=== PATIENT | male | born 1970 | race Caucasian/White ===

== ENCOUNTER 2016-07-01 05:54 | Day surgery (SDC) | payer BC ==
[2016-07-01] MEDS ORDERED: LIDOCAINE HCL/PF 1% 30 ML SDV ONE (06:23)
[2016-07-01] MEDS ORDERED: EPINEPHRINE (1:1000) MDV 30 MG/30ML VIAL ONE (06:23)
[2016-07-01] MEDS ORDERED: MIDAZOLAM HCL 2 MG/2ML VIAL ONE (07:08)
[2016-07-01] MEDS ORDERED: FENTANYL PF 100MCG/2ML AMPUL ONE (07:08)
[2016-07-01] MEDS ORDERED: ESMOLOL INJ 100 MG/10 ML VIAL IV ONE (07:09)
[2016-07-01] MEDS ORDERED: ROCURONIUM BROMIDE 50 MG/5 ML ONE (07:09)
[2016-07-01] MEDS ORDERED: IV LR 1000 ML 1,000 ML ONE (07:42)
[2016-07-01] MEDS ORDERED: CEFAZOLIN SODIUM/DEXTROSE,ISO 50 ML IV ONE (07:43)
[2016-07-01] MEDS ORDERED: IV SET PRIMARY 1 EA INFUS.SET MC ONE (07:43)
[2016-07-01] MEDS ORDERED: SECONDARY IV SET 1 EA INFUS.SET MC ONE (07:43)
[2016-07-01] MEDS ORDERED: NEEDLELESS EST SET LARGE BORE 1 EA INFUS.SET MC ONE (07:43)
[2016-07-01] MEDS ORDERED: methylPREDNISolone ACETATE 80 MG/ML VIAL ONE (08:15)
[2016-07-01] MEDS ORDERED: SEVOFLURANE 250 ML BOTTLE IH ONE (09:37)
== END 2016-07-01 10:20 ==
LOC: DS 05:54
PROVIDERS: ATTEND Specialist
DX: M75.41 Impingement syndrome of right shoulder (principal); M75.101 Unspecified rotator cuff tear or rupture of right shoulder, not specified as traumatic; M75.21 Bicipital tendinitis, right shoulder; M19.011 Primary osteoarthritis, right shoulder; M65.811 Other synovitis and tenosynovitis, right shoulder
CPT/HCPCS: 23430; 29823; 29824; 29826; 88304; 88305; 88311; 93005; A4217; A6253; J0171; J0690; J1040; J2250; J3010; J3490 ×2; J7120